=== PATIENT | male | born 1955 | race African-American/Black ===

== ENCOUNTER 2016-03-06 19:34 | Emergency (ER) | payer OTHER ==
[~2016-03-06] VITALS: Ht 172.7 cm; Wt 112.0 kg
[~2016-03-06 19:34] MED LIST: AMITRIPTYLINE H10 M3 PO; AMLODIPINE BESY10 MG PO; AMLODIPINE BESYL5 MG PO; ANALGESIC325 MG PO; ASPIRIN325 PO; BACTRIM DS TAB1 EACH PO; BENTYL 20 MG TA20 M1 PO; CARVEDILOL25 MG PO; CARVEDILOL6.25 MG PO; CHLORTHALIDONE25 MG PO; CIPROFLOXACIN500 M3 PO; FISH OIL 1,0001 EAC5; FISH OIL 1,001000 M1 PO; FLAGYL500 MG PO; FLEXERIL PO; HYDROCHLOROTHIA25 M1 PO; K-DUR10 MEQ; KLOR-CON 10 ER10 MEQ PO; LIPITOR 40 MG T40 M1 PO; MEDROLDOSEPACK PO; MOBIC15 MG PO; NAPROSYN500 MG PO; NEURONTIN 300300 M1 PO; NORCO 5-325 TA1 EACH PO; NORFLEX100 MG PO; PERCOCET 10-651 EACH PO; PERCOCET 5-3251 EACH PO; POTASSIUM20 PO; PRAVACHOL40 MG; PRAVASTATIN SOD10 MG; PRAVASTATIN SOD40 MG PO; PREDNISONE 20 M20 MG PO; PRINIVIL20 MG PO; RANITIDINE 150150 M1 PO; SIMVASTATIN10 MG PO; SORINE 80 MG TA80 M1 PO; STOOL SOFTENER1 EAC2; VALIUM5 MG PO; VICODIN ES TAB1 EACH PO; ZESTRIL20 MG PO; ZETIA10 MG PO
[2016-03-06] MEDS ORDERED: LISINOPRIL20 MG PO (19:45)
[2016-03-06] MEDS ORDERED: HYDROCHLOROTHIA25 M2 PO (19:45)
[2016-03-06] MEDS ORDERED: HYDROCODONE-AP1 EAC6 PO (20:59)
[2016-03-06] MEDS ORDERED: TIZANIDINE HCL4 MG PO (20:59)
== END 2016-03-06 21:29 | disposition home or self-care (01) ==
LOC: ER 19:34
DX: M43.6 Torticollis (principal); I25.2 Old myocardial infarction; I10 Essential (primary) hypertension; E78.00 Pure hypercholesterolemia, unspecified; I48.91 Unspecified atrial fibrillation; G47.39 Other sleep apnea; I71.4 Abdominal aortic aneurysm, without rupture; I25.10 Atherosclerotic heart disease of native coronary artery without angina pectoris; Z88.0 Allergy status to penicillin; Z87.891 Personal history of nicotine dependence

== ENCOUNTER 2016-03-18 12:04 | Emergency (ER) | payer OTHER ==
[~2016-03-18] VITALS: Ht 172.7 cm; Wt 112.0 kg
[~2016-03-18 12:04] MED LIST changes: +HYDROCHLOROTHIA25 M2 PO; +HYDROCODONE-AP1 EAC6 PO; +LISINOPRIL20 MG PO; +TIZANIDINE HCL4 MG PO
[2016-03-18] MEDS ORDERED: MOBIC15 MG PO (15:24)
[2016-03-18] MEDS ORDERED: FLEXERIL PO (15:24)
[2016-03-18] MEDS ORDERED: NORCO 5-325 TA1 EACH PO (15:35)
== END 2016-03-18 16:02 | disposition home or self-care (01) ==
LOC: ER 12:04
DX: S16.1XXA Strain of muscle, fascia and tendon at neck level, initial encounter (principal); I25.2 Old myocardial infarction; I10 Essential (primary) hypertension; E78.5 Hyperlipidemia, unspecified; I48.91 Unspecified atrial fibrillation; I25.10 Atherosclerotic heart disease of native coronary artery without angina pectoris; Z88.0 Allergy status to penicillin; F17.210 Nicotine dependence, cigarettes, uncomplicated; F10.99 Alcohol use, unspecified with unspecified alcohol-induced disorder; V89.2XXA Person injured in unspecified motor-vehicle accident, traffic, initial encounter; Y93.89 Activity, other specified; Y92.89 Other specified places as the place of occurrence of the external cause; Y99.8 Other external cause status

== ENCOUNTER → 2016-08-29 | Outpatient (CLI) | payer OTHER ==
[~2016-08-29] VITALS: Ht 172.7 cm; Wt 112.0 kg
[~2016-08-29] MED LIST changes: +ACETAMINOPHEN-1 EAC2 PO; +AMITRIPTYLINE H25 M2 PO; +IBUPROFEN 800800 M1 PO; +NEURONTIN600 MG PO
[2016-08-29 13:16] VITALS: BP 121/84
== END | disposition home or self-care (01) ==
LOC: PAIN 07:23
DX: M53.3 Sacrococcygeal disorders, not elsewhere classified (principal); G89.29 Other chronic pain; M47.27 Other spondylosis with radiculopathy, lumbosacral region; I11.0 Hypertensive heart disease with heart failure; I50.9 Heart failure, unspecified; M19.90 Unspecified osteoarthritis, unspecified site; Z79.82 Long term (current) use of aspirin; Z79.899 Other long term (current) drug therapy; Z90.49 Acquired absence of other specified parts of digestive tract; Z98.890 Other specified postprocedural states; Z87.891 Personal history of nicotine dependence; Z88.0 Allergy status to penicillin

== ENCOUNTER → 2016-09-06 | Outpatient (CLI) | payer OTHER ==
[~2016-09-06] VITALS: Ht 172.7 cm; Wt 110.0 kg
--- NOTE | ~2016-09-06 | HPC ---
[facility] [place] [address] PAIN MANAGEMENT CONSULTATION Name: NEW WATERMAN Room #: REG CLDedrick De La Fuente#: [id number] Admission: 09/06/16 Attend Phys: Milad Myles DO Discharge: Date of : 55 Report #: [id number] THIS REPORT FOR: //name// CC: Milad Ford DATE OF SERVICE: 09/06/2016 REFERRAL PHYSICIAN: Dr. Kamara. CHIEF COMPLAINT: Left sacroiliac joint pain. HISTORY OF PRESENT ILLNESS: As you know, the patient is a very pleasant 60-year-old male referred to our service for low back pain, left upper buttock, posterolateral thigh pain. The patient states the pain began somewhere in 2016. He was referred to our clinic by his neurosurgery team who has requested diagnostic left SI joint injection under fluoroscopic guidance. The patient was seen in our clinic 08/29/2016 where he was evaluated. He returns today with precertification to undergo the requested left sacroiliac joint injection. Today's pain is rated at 9/10. States pain is constant, burning, aching, sharp and stabbing, exacerbated with sleeping, standing, sitting and walking, improves with nothing today. He returns today per the request of his neurosurgery team to undergo a left sacroiliac diagnostic injection. ALLERGIES: PENICILLIN. CURRENT MEDICATIONS: Aspirin, amlodipine Ranitidine, carvedilol, potassium chloride, lisinopril, hydrochlorothiazide, gabapentin, amitriptyline, cyclobenzaprine, Tylenol No.4 and ibuprofen. SOCIAL HISTORY: The patient denies tobacco, alcohol, IV or illicit drug use. He is unaccompanied at today's visit. IMAGING: No new imaging available. PHYSICAL EXAMINATION: VITAL SIGNS: Blood pressure 141/96, pulse 78, respiratory rate 16, unlabored. The patient is 97% on room air, height 5 feet 8 inches tall, weight 242 pounds, BMI calculated 36.9. GENERAL: Well developed, well nourished, well-hydrated exogenously obese 60-year-old male appearing stated age, placing current pain score at 9/10. HEENT: Normocephalic, atraumatic. Pupils equal, round, reactive to light. Extraocular muscles are intact. EXTREMITIES: Show no clubbing, no cyanosis, no edema. MUSCULOSKELETAL: Seated straight leg raising negative. Supine straight leg raising is positive on the left. Leanne's test is negative. Modified [facility] [address] [place] [address] PAIN MANAGEMENT CONSULTATION Name: NEW WATERMAN Room #: REG [facility]#: [id number] Admission: 09/06/16 Attend Phys: Milad Myles DO Discharge: Date of : 55 Report #: [id number] positive for axial low back pain. Ankle clonus negative. Babinski is negative. There is palpatory tenderness noted over the left sacroiliac joint when compared to the right. Deep palpation of the area causes intensification of pain. ASSESSMENT: 1. Left sacroiliac joint dysfunction. 2. Lumbar radiculopathy. 3. Lumbosacral spondylosis with radicular symptoms. 4. Chronic intractable pain. PLAN: 1. The patient returns today in followup visit having received precertification to undergo the requested left sacroiliac joint injection. The patient and I discussed at length the risks and the benefits of this procedure. These risks include but are not necessarily limited to bleeding, bruising, infection, worsening pain, no relief of pain, also risk of temporary or permanent muscle weakness, temporary or permanent nerve damage, possible paralysis and . The patient states understood and wished to proceed. 2. The patient was provided a diagnostic sacroiliac joint injection form. He is to monitor his pain over the next couple of hours and report to Dr. Kamara the results. The patient indicates he received a significant pain improvement from 9/10-3/10 postprocedurally. He will monitor his pain levels as they return and contact Dr. Kamara with the results so that they can discuss whether or not fusion of the SI joint would be warranted. 3. No medication changes were made at today's visit. The patient to continue current medical therapy as previously prescribed. 4. The patient will return to see his neurosurgeon about treatment options for the response to this left SI joint injection. We wish to thank you for the opportunity to see this patient in consultation. We are returning his care to your capable hands. We will be available if next in the series of injections as requested. DESCRIPTION OF PROCEDURE: Left sacroiliac joint injection under fluoroscopic guidance. After obtaining written consent, the patient was taken back to fluoroscopy suite, placed in a prone position with pillow under the abdomen to decrease the lumbar lordosis. Skin overlying the gluteal sacral area just overlying the left sacroiliac joint was prepped and draped in aseptic fashion. A medial to lateral oblique projection allowed separation of the anterior and posterior branches of the joint space to be visualized. Skin and subcutaneous tissue overlying the target site of injection was anesthetized with 3 mL of 1% lidocaine. A 22-guage 3-1/2 inch spinal needle with bent tip was directed to the inferior aspect of the left sacroiliac joint using a posterior approach. A [address] [address] PAIN MANAGEMENT CONSULTATION Name: NEW WATERMAN Room #: REG [facility]#: [id number] Admission: 09/06/16 Attend Phys: Milad Myles DO Discharge: Date of : 55 Report #: [id number] "giving away" at the needle hub was noted once the dorsal sacroiliac and interosseous ligaments were engaged. After negative aspiration for a heme, a total of 0.4 mL of Isovue was injected. There was classic outlining of the inferior recess of the joint. Provocation responses consisted to have intense buttock pain were negative with this injection. After negative aspiration for heme, 3 mL of bupivacaine 0.5% was injected. Needle was then retracted approximately detention and then flushed with 1 mL of preservative-free normal saline. The needle was then removed. Sterile bandage were then placed over the injection site. No new motor deficits present in lower extremity following the procedure. The patient tolerated procedure well, carefully escorted to the recovery in stable condition. No apparent complications. After meeting discharge criteria, the patient discharged home. cc: Dr. Kamara By: 0717 1152 Milad Myles DO /nt
[2016-09-06 11:00] VITALS: BP 141/96
== END | disposition home or self-care (01) ==
LOC: PAIN 07:20
DX: M53.3 Sacrococcygeal disorders, not elsewhere classified (principal); M47.27 Other spondylosis with radiculopathy, lumbosacral region; G89.29 Other chronic pain; Z88.0 Allergy status to penicillin; Z79.82 Long term (current) use of aspirin; Z79.899 Other long term (current) drug therapy; Z98.890 Other specified postprocedural states; Z87.891 Personal history of nicotine dependence

== ENCOUNTER 2016-10-30 22:59 | Emergency (ER) | payer OTHER ==
[~2016-10-30] VITALS: Ht 172.7 cm; Wt 110.2 kg
[2016-10-31] MEDS ORDERED: NORCO 5-325 TA1 EACH PO (00:03)
== END 2016-10-31 00:30 | disposition home or self-care (01) ==
LOC: ER 22:59
DX: G89.29 Other chronic pain (principal); M54.5 Low back pain; I10 Essential (primary) hypertension; Z95.5 Presence of coronary angioplasty implant and graft; Z87.39 Personal history of other diseases of the musculoskeletal system and connective tissue; Z88.0 Allergy status to penicillin; Z87.891 Personal history of nicotine dependence

== ENCOUNTER 2017-09-16 00:49 | Emergency (ER) | payer OTHER ==
[~2017-09-16] VITALS: Ht 172.7 cm; Wt 112.0 kg
--- NOTE | ~2017-09-16 | EKG ---
[place] [address] [facility] [place] [address] ELECTROCARDIOGRAM REPORT Name: COLUMBANEW GARZA Room #: DEP Leisa#: [id number] Admission: 09/16/17 Attend Phys: Discharge: 09/16/17 Date of : 55 Report #: [id number] THIS REPORT FOR: //name// [facility] ED Test Date: 2017-09-16 Test Time: 02:09:51 Pat Name: NEW WATERMAN Department: Room: Gender: Supervisor Harvesting: maximilian : 1955 Requested By: Kiet Gorman Order Number: [id number] MD: Juvencio Arenas Measurements Intervals [place] Rate: 70 P: 53 DE: 188 QRS: -41 QRSD: 123 T: 54 QT: 413 QTc: 446 Interpretive Statements Sinus rhythm Nonspecific IVCD with LAD Compared to ECG 04/30/2014 22:42:36 Intraventricular conduction delay now present Atrial fibrillation no longer present Electronically Signed On 09-16-2017 13:52:46 CDT by Juvencio Arenas [email or web address] <ELECTRONICALLY SIGNED> By: Juvencio Arenas MD, [facility] 09/16/17 1352 D: 07208 8 Juvencio Arenas MD, FACC /EPI
[2017-09-16] MEDS ORDERED: MORPHINE SULFAT15 M3 PO (02:34)
== END 2017-09-16 02:46 | disposition home or self-care (01) ==
LOC: ER 00:49
DX: R07.89 Other chest pain (principal); I10 Essential (primary) hypertension; Z87.891 Personal history of nicotine dependence; Z88.0 Allergy status to penicillin; Z90.49 Acquired absence of other specified parts of digestive tract

== ENCOUNTER 2017-10-11 21:35 | Inpatient (IN) | payer OTHER ==
[~2017-10-11] VITALS: Ht 172.7 cm; Wt 106.8 kg
--- NOTE | ~2017-10-11 | EKG ---
[address] [place] [address] ELECTROCARDIOGRAM REPORT Name: NEW WATERMAN Room #: 210- DIS IN M.R.#: [id number] Admission: 10/11/17 Attend Phys: Heri Pizano MD Discharge: 10/13/17 Date of : 55 Report #: [id number] THIS REPORT FOR: //name// [facility] Test Date: 2017-10-13 Test Time: 07:30:02 Pat Name: NEW WATERMAN Department: Room: 210 P Gender: M Manager Supply: Noman ONEILL : 1955 Requested By: Sandoval Lynch Order Number: [id number] MD: Juvencio Arenas Measurements Intervals [place] Rate: 57 P: 53 [place]: 170 QRS: -43 QRSD: 130 T: -57 QT: 456 QTc: 444 Interpretive Statements Sinus rhythm Nonspecific IVCD with LAD Compared to ECG 10/11/2017 21:45:03 No significant change was found Electronically Signed On 10-13-2017 13:10:15 CDT by Juvencio Arenas [email or web address] <ELECTRONICALLY SIGNED> By: Juvencio Arenas MD, [facility] 10/13/17 1310 9 Juvencio Arenas MD, [facility] /EPI
--- NOTE | ~2017-10-11 | EKG ---
[address] [address] ELECTROCARDIOGRAM REPORT Name: NEW WATERMAN Room #: 210-P ADM IN M.R.#: [id number] Admission: 10/11/17 Attend Phys: Heri Pizano MD Discharge: Date of : 55 Report #: [id number] THIS REPORT FOR: //name// [facility] ED Test Date: 2017-10-11 Test Time: 21:45:03 Pat Name: NEW WATERMAN Department: Room: 210 Gender: M Medical Transcription: ISAEL : 1955 Requested By: Cindy Jiménez Order Number: [id number] MD: Juvencio Arenas Measurements Intervals [place] Rate: 78 P: 36 SD: 190 QRS: -33 QRSD: 132 T: 92 QT: 380 QTc: 433 Interpretive Statements Sinus rhythm Leftward axis Nonspecific intraventricular conduction delay Compared to ECG 09/16/2017 02:09:51 No significant change was found Electronically Signed On 10-12-2017 8:10:26 CDT by Juvencio Arenas [email or web address] <ELECTRONICALLY SIGNED> By: Juvencio Arenas MD, [facility] 10/12/17 0810 2145 2145 Juvencio Arenas MD, [facility] /EPI
--- NOTE | ~2017-10-11 | CATHLAB ---
[facility] [place] [address] INVASIVE PROCEDURE REPORT Name: NEW WATERMAN Room #: 210-P ADM IN .R.#: [id number] Admission: 10/11/17 Attend Phys: Heri Pizano, Discharge: Date of : 55 Date of Service: 10/13/17 1203 Report #: [id number] THIS REPORT FOR: //name// APPROVED REPORT Study performed: 10/12/2017 13:04:13 Patient Details Patient Status: In-Patient Room #: The patient is a 62 year-old male Event Personnel Sandoval Lynch Environmental Department Manager, Dinesh Edwards RN RN, Vinicius Goldman RN, Shea Wilson Greenwood, Christine RTR Monitor, No Nuñez RTR, BARREL POLISHER Monitor Procedures Performed Art Access - R femoral artery* Art Access - R radial artery Hemostasis with Hemoband Hemostasis w/ Angioseal Left Heart Cath w/or w/o Coronaries [id number] [facility] [address] Initial Mod Sed Same Phys/QHP Gr5y [id number] 88008 Mod Sed Same Phys/QHP Ea [id number] Indication Non-STEMI , Chest pain Risk Factors Arterial Hypertension, Hypercholesterolemia Previous Procedures/Diagnoses Previous PCI, Previous OH Admission/Lab Medications/Medications given during procedure Heparin Low Molecular Weight Procedure Narrative The patient was brought electively to the Cardiac Catheterization Laboratory and was prepped and draped in a sterile manner. The Right Wrist^ was infiltrated with 1% Lidocaine subcutaneous anesthesia. A TRANSRADIAL SLENDER 6F GLIDESHEATH KIT #[id number] sheath was inserted into the RIGHT RADIAL ARTERY^. Coronary angiography was performed using coronary diagnostic catheters. The right coronary system was accessed and visualized with a JR 4 catheter. The left coronary system was accessed and visualized with a JL 4 catheter. The left ventricle was accessed and visualized with a Pigtail catheter. Left [facility] [address] [address] INVASIVE PROCEDURE REPORT Name: NEW WATERMAN Room #: 210-P [facility] IN .R.#: [id number] Admission: 10/11/17 Attend Phys: Heri Pizano, Discharge: Date of : 55 Date of Service: 10/13/17 1203 Report #: [id number] ventricular/Aortic Valve gradient assessed via catheter pullback. Left ventriculogram was performed in ROMERO projection. Closure device was deployed with a 6 Fr vascband. The patient tolerated the procedure well and there were no complications associated with the procedure. There was no hematoma. Intraoperative Conscious Sedation Sedation start time: 15:16 Case end Time: 17:15 Fentanyl 75 mcg Versed 2 mg Fluoro Time: 17.50 minutes Dose: DAP 68377.60 cGycm2 2091 mGy Contrast Type and Amount: Omnipaque 320 ml Coronary Angiography The patient's coronary anatomy is co- dominant. Diagnostic Cath Left Main 0% stenosis LAD 0% stenosis Circumflex Stent in mid circumflex had 50% restenosis OM2 50% proximal stenosis L TANIYA 100% occluded with clot Right Coronary 50% mid stenosis. Stent in mid rca without restenosis RPLV small vessel with proximal 80% stenosis Ramus 60% proximal stenosis Left Ventriculography The left ventricular ejection fraction is estimated to be 30-35%. Left ventricular wall motion abnormalities are present. There is 1+ mitral insufficiency. mild hypokinesis noted of the inferior wall, and severe hypokinesis noted of the distal anterolateral wall Hemodynamics The aortic pressure is 135/101 mmHg with a mean of 118 mmHg. The left ventricular pressure is 127/25 mmHg with a mean of mmHg. The left ventricular end diastolic pressure is 27 mmHg. There was no gradient across the aortic valve upon pullback. Pullback from the left ventricle to the aorta revealed no gradient across the aortic valve. PCI Technique Lesion Anticoagulation was achieved with lovenox. Patient was preloaded with [facility] [address] [address] INVASIVE PROCEDURE REPORT Name: NEW WATERMAN Room #: 210-P [facility] IN M.R.#: [id number] Admission: 10/11/17 Attend Phys: Heri Pizano, Discharge: Date of : 55 Date of Service: 10/13/17 1203 Report #: [id number] Plavix. Percutaneous coronary intervention was performed on the circumflex artery atrioventricular groove continuation segment. The lesion stenosis prior to intervention was 100% with DELVIS 0 flow. A 4.5 xb Guide Catheter was used to engage the lm ostium. A bmw Interventional Guidewire was used to cross the lesion. Final angiography reveals 100 % stenosis with DELVIS 0 flow. COMMENTS Passing wire into distal circumflex difficult secondary to tortuosity of circumflex. Required placement of balloon in the left main artery. Able to pass wire across stenosis into distal circumflex, but unable to pass balloon despite use of guideliner. Concerned that the wire was under a stent strut. Decided to attempt PTCA from femoral approach to provide additional support. Despite efforts, unable to pass balloon into distal circumflex. Patient was pain free. Decided to abandon further attempts because of difficutly, and the vessel was noted to be a distal branch. Angioseal placed in the right femoral artery at end of procedure. Conclusion 1. No significant restenosis of stents noted in mid circumflex and mid rca 2. 80% stenosis noted of a small posterolateral branch of the rca 3. accute occlusion of the distal circumflex 4. unable to advance balloon to the distal circumflex because of distal location and tortuosity 5. moderate LV dysfunction Recommendations Cardiac Rehabilitation Referral Aggressive Medical Therapy Medications Administered Clopidogrel <ELECTRONICALLY SIGNED> By: Sandoval Lynch MD, [facility] 10/13/173 02 02 Sandoval Lynch MD, FAC /INF
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
--- NOTE | ~2017-10-11 | EKG ---
[address] [place] [address] ELECTROCARDIOGRAM REPORT Name: NEW WATERMAN Room #: 210-P DIS IN M.R.#: [id number] Admission: 10/11/17 Attend Phys: Heri Pizano MD Discharge: 10/13/17 Date of : 55 Report #: [id number] THIS REPORT FOR: //name// [facility] Test Date: 2017-10-12 Test Time: 17:47:50 Pat Name: NEW WATERMAN Department: Room: 210 P Gender: M Eeo Officer: Noman ONEILL : 1955 Requested By: Sandoval Lynch Order Number: [id number] MD: Juvencio Arenas Measurements Intervals [place] Rate: 69 P: 48 MD: 187 QRS: -47 QRSD: 128 T: -60 QT: 414 QTc: 444 Interpretive Statements Sinus rhythm Nonspecific IVCD with LAD Compared to ECG 10/11/2017 21:45:03 Nonspecific change in the T wave abnormality Electronically Signed On 10-13-2017 13:01:29 CDT by Juvencio Arenas [email or web address] <ELECTRONICALLY SIGNED> By: Juvencio Arenas MD, [facility] 10/13/17 1301 1747 1747 Juvencio Arenas MD, [facility] /EPI
[~2017-10-11 21:35] MED LIST changes: +MORPHINE SULFAT15 M3 PO
[2017-10-11 21:42] VITALS: BP 189/113
[2017-10-11 22:20] LABS: HEMATOCRIT 40.8 % (42.0-52.0); HEMOGLOBIN 13.9 gm/dL (14.0-18.0); MCHC 34.1 g/dL (28.0-37.0); MCV 93.7 fL (80.0-100.0); RBC 4.36 mil/uL (4.50-6.00); RDW 15.5 % (10.5-14.5); WBC 8.3 thou/uL (4.0-11.0)
[2017-10-11 22:25] LABS: ANION GAP 8 mmol/L (7-16); BUN 15 mg/dL (7-18); CALCIUM 10.3 mg/dL (8.5-10.1); CHLORIDE 102 mmol/L (98-107); CO2 31 mmol/L (21-32); CREATININE 1.2 mg/dL (0.7-1.3); GLUCOSE 135 mg/dL (74-106); POTASSIUM 3.1 mmol/L (3.5-5.1); SODIUM 141 mmol/L (136-145)
[2017-10-11 22:34] LABS: ALBUMIN 3.5 g/dL (3.4-5.0); SGOT 17 U/L (15-37); SGPT 27 U/L (30-65); TOTAL BILIRUBIN 0.1 mg/dL (<0.1-1.0); TOTAL PROTEIN 7.9 g/dL (6.4-8.2); TROPONIN-I <0.06 ng/mL (<0.06)
[2017-10-12] VITALS (8 sets, daily range): BP systolic 128–153; BP diastolic 88–103
[2017-10-12 04:29] LABS: ANION GAP 6 mmol/L (7-16); BUN 12 mg/dL (7-18); CALCIUM 10.2 mg/dL (8.5-10.1); CHLORIDE 103 mmol/L (98-107); CHOLESTEROL 199 mg/dL (<200); CO2 34 mmol/L (21-32); CREATININE 1.1 mg/dL (0.7-1.3); GLUCOSE 181 mg/dL (74-106); HDL CHOLESTEROL 39 mg/dL (>40); LDL CHOLESTEROL 130 mg/dL (<100); POTASSIUM 3.7 mmol/L (3.5-5.1); SODIUM 143 mmol/L (136-145); TC:HDL 5.1 Ratio (Not establshd); TRIGLYCERIDE 152 mg/dL (<150); VLDL 30 mg/dL (<40)
[2017-10-12 04:35] LABS: SERUM ASSESSMENT Clear
[2017-10-13 05:06] VITALS: BP 129/86
[2017-10-13 05:32] LABS: HEMATOCRIT 40.7 % (42.0-52.0); HEMOGLOBIN 14.1 gm/dL (14.0-18.0); MCHC 34.5 g/dL (28.0-37.0); MCV 92.7 fL (80.0-100.0); RBC 4.4 mil/uL (4.50-6.00); RDW 15.7 % (10.5-14.5); WBC 7.8 thou/uL (4.0-11.0)
[2017-10-13 07:33] VITALS: BP 119/84
[2017-10-13] MEDS ORDERED: CLOPIDOGREL75 MG PO (11:05)
[2017-10-13] MEDS ORDERED: ATORVASTATIN CA40 MG PO (11:05)
[2017-10-13] MEDS ORDERED: ADULT LOW DOSE81 MG PO (11:06)
[2017-10-13 11:24] VITALS: BP 119/89
== END 2017-10-13 12:03 | disposition home or self-care (01) | DRG 280 ==
LOC: ER 21:35 → EROBS 23:11 → 2N 23:11 → ENTRNSPT 10-13 11:50 → 2N 10-13 12:03
PROVIDERS: Internal Medicine Cardiovascular Disease; Nurse Practitioner Family; Physician Assistant
PROC: 4A023N7 Measurement of Cardiac Sampling and Pressure, Left Heart, Percutaneous Approach (ICD-10-PCS; principal; 2017-10-12)
PROC: B2111ZZ Fluoroscopy of Multiple Coronary Arteries using Low Osmolar Contrast (ICD-10-PCS; principal; 2017-10-12)
PROC: B2151ZZ Fluoroscopy of Left Heart using Low Osmolar Contrast (ICD-10-PCS; principal; 2017-10-12)
DX: I21.4 Non-ST elevation (NSTEMI) myocardial infarction (principal); I50.33 Acute on chronic diastolic (congestive) heart failure; I42.9 Cardiomyopathy, unspecified; I24.9 Acute ischemic heart disease, unspecified; I25.10 Atherosclerotic heart disease of native coronary artery without angina pectoris; E78.5 Hyperlipidemia, unspecified; I48.91 Unspecified atrial fibrillation; E74.39 Other disorders of intestinal carbohydrate absorption; G47.33 Obstructive sleep apnea (adult) (pediatric); Z90.49 Acquired absence of other specified parts of digestive tract; Z95.5 Presence of coronary angioplasty implant and graft; Z88.0 Allergy status to penicillin; Z82.49 Family history of ischemic heart disease and other diseases of the circulatory system; Z87.891 Personal history of nicotine dependence; I25.2 Old myocardial infarction; Z79.82 Long term (current) use of aspirin; Z79.899 Other long term (current) drug therapy; I11.0 Hypertensive heart disease with heart failure
CPT/HCPCS: 10081

== ENCOUNTER 2018-09-27 19:14 | Emergency (ER) | payer OTHER ==
[~2018-09-27] VITALS: Ht 172.7 cm; Wt 111.1 kg
[~2018-09-27 19:14] MED LIST changes: +ADULT LOW DOSE81 MG PO; +ATORVASTATIN CA40 MG PO; +CLOPIDOGREL75 MG PO
[2018-09-27 20:14] LABS: ABSOLUTE NEUTROPHILS 3.1 thou/uL (1.4-8.2); BASOPHILS 1.2 % (0.0-2.0); HEMATOCRIT 41.3 % (42.0-52.0); HEMOGLOBIN 14.2 gm/dL (14.0-18.0); LYMPHOCYTES 41.4 % (24.0-44.0); MCH 31.3 pg (26.0-34.0); MCHC 34.4 g/dL (28.0-37.0); MCV 90.9 fL (80.0-100.0); MONOCYTES 10.6 % (1.0-8.0); PLATELET COUNT 177 thou/uL (150-400); POLYS 43.8 % (36.0-66.0); RBC 4.54 mil/uL (4.50-6.00); RDW 15.5 % (10.5-14.5); WBC 7.1 thou/uL (4.0-11.0)
[2018-09-27 20:23] LABS: ANION GAP 5 mmol/L (7-16); BUN 17 mg/dL (7-18); CHLORIDE 104 mmol/L (98-107); CO2 29 mmol/L (21-32); CREATININE 1.3 mg/dL (0.7-1.3); GLUCOSE 122 mg/dL (74-106); POTASSIUM 3.2 mmol/L (3.5-5.1); SODIUM 138 mmol/L (136-145)
[2018-09-27 20:34] LABS: TROPONIN-I <0.06 ng/mL (<0.06)
[2018-09-27 20:42] LABS: APTT 29.2 Seconds (24.5-32.8); PROTIME 10.9 Seconds (9.3-11.4)
[2018-09-27 22:40] VITALS: BP 141/95
--- NOTE | 2018-09-28 10:56 | EKG ---
[facility] [place] [address] ELECTROCARDIOGRAM REPORT Name: NEW WATERMAN [id number] Admission: 09/27/18 Attend Phys: Discharge: 09/27/18 Date of : 55 Report #: [id number] THIS REPORT FOR: //name// [facility] ED Test Date: 2018-09-27 Test Time: 19:21:51 Pat Name: NEW WATERMAN Department: Room: Gender: M Technical Operations Specialist: : 1955 Requested By: Jeffery Pang Order Number: [id number] MD: Vikas Lim Measurements Intervals [place] Rate: 124 P: [place]: QRS: -49 QRSD: 127 T: 99 QT: 372 QTc: 535 Interpretive Statements Atrial fibrillation Nonspecific IVCD with LAD LVH with secondary repolarization abnormality Compared to ECG 10/13/2017 07:30:02 Left ventricular hypertrophy now present Early repolarization now present Sinus rhythm no longer present Electronically Signed On 09-28-2018 10:56:03 CDT by Vikas Lim [email or web address] <ELECTRONICALLY SIGNED> By: Vikas Lim MD 09/28/18 1056 192 20 Vikas Lim MD /DESIRAE
[2018-09-28] MEDS ORDERED: ASPIRIN325 PO (17:06)
[2018-09-28] MEDS ORDERED: COREG25 MG (17:06)
[2018-09-28] MEDS ORDERED: HYDROCHLOROTHIA25 M2 PO (17:06)
== END 2018-09-27 22:40 | disposition home or self-care (01) ==
LOC: ER 19:14
PROVIDERS: Emergency Medicine
DX: I48.91 Unspecified atrial fibrillation (principal); R06.00 Dyspnea, unspecified; I10 Essential (primary) hypertension; I25.2 Old myocardial infarction; Z95.2 Presence of prosthetic heart valve; Z90.49 Acquired absence of other specified parts of digestive tract; Z88.0 Allergy status to penicillin; Z87.891 Personal history of nicotine dependence

== ENCOUNTER 2018-09-28 07:37 | Inpatient (IN) | payer OTHER ==
[~2018-09-28] VITALS: Ht 170.2 cm; Wt 97.3 kg
[2018-09-28 07:40] VITALS: BP 141/106
[2018-09-28 08:16] LABS: ABSOLUTE NEUTROPHILS 4.9 thou/uL (1.4-8.2); BASOPHILS 1.4 % (0.0-2.0); EOSINOPHILS 1.9 % (0.0-3.0); HEMATOCRIT 42.4 % (42.0-52.0); HEMOGLOBIN 14.6 gm/dL (14.0-18.0); LYMPHOCYTES 32.2 % (24.0-44.0); MCH 31.4 pg (26.0-34.0); MCHC 34.4 g/dL (28.0-37.0); MCV 91.3 fL (80.0-100.0); MONOCYTES 8.4 % (1.0-8.0); POLYS 56.1 % (36.0-66.0); RBC 4.64 mil/uL (4.50-6.00); RDW 15.5 % (10.5-14.5); WBC 8.8 thou/uL (4.0-11.0)
[2018-09-28 08:26] LABS: ANION GAP 8 mmol/L (7-16); BUN 15 mg/dL (7-18); CALCIUM 10.2 mg/dL (8.5-10.1); CHLORIDE 101 mmol/L (98-107); CO2 27 mmol/L (21-32); CREATININE 1.2 mg/dL (0.7-1.3); GLUCOSE 133 mg/dL (74-106); POTASSIUM 3.1 mmol/L (3.5-5.1); SODIUM 136 mmol/L (136-145)
[2018-09-28 08:31] LABS: ALBUMIN 3.7 g/dL (3.4-5.0); DIRECT BILIRUBIN 0.2 mg/dL (<0.1-0.3); TOTAL BILIRUBIN 0.6 mg/dL (<0.1-1.0); TOTAL PROTEIN 6.1 g/dL (6.4-8.2)
[2018-09-28 08:34] LABS: TROPONIN-I <0.06 ng/mL (<0.06)
[2018-09-28 08:48] LABS: PLATELET COUNT 194 thou/uL (150-400)
[2018-09-28 08:54] LABS: URINE BILIRUBIN NEGATIVE (Negative); URINE BLOOD 1+ (Negative); URINE CLARITY CLEAR; URINE COLOR YELLOW; URINE GLUCOSE-RANDOM* NEGATIVE (Negative); URINE KETONES NEGATIVE (Negative); URINE LEUKOCYTES-REFLEX NEGATIVE (Negative); URINE NITRITE-REFLEX NEGATIVE (Negative); URINE PROTEIN (DIPSTICK) 2+ (Negative); URINE SPECIFIC GRAVITY 1.015 (1.005-1.035)
[2018-09-28 09:29] LABS: CASTS None Seen /LPF (None Seen); CRYSTALS None Seen /LPF (None Seen); SQUAMOUS None Seen /LPF (0-3); URINE RBC 0-2 Rare /HPF (0-2); URINE WBC-REFLEX 0-5 Rare /HPF (0-5)
[2018-09-28 10:19] VITALS: BP 146/109
--- NOTE | 2018-09-28 10:59 | EKG ---
[address] [place] [address] ELECTROCARDIOGRAM REPORT Name: NEW WATERMAN Room #: 170-7 ADM IN M.R.#: [id number] Admission: 09/28/18 Attend Phys: Mathew Chu MD Discharge: Date of : 55 Report #: [id number] THIS REPORT FOR: //name// [facility] ED Test Date: 2018-09-28 Test Time: 07:50:53 Pat Name: NEW WATERMAN Department: Room: 170 Gender: M Chute Operator: REJI : 1955 Requested By: Darell Crockett Order Number: [id number] MD: Vikas Lim Measurements Intervals [place] Rate: 138 P: SD: QRS: -39 QRSD: 127 T: 131 QT: 315 QTc: 478 Interpretive Statements Atrial fibrillation Nonspecific IVCD with LAD LVH with secondary repolarization abnormality Compared to ECG 10/13/2017 07:30:02 Left ventricular hypertrophy now present Electronically Signed On 09-28-2018 10:59:19 CDT by Vikas Lim [email or web address] <ELECTRONICALLY SIGNED> By: Vikas Lim MD 09/28/18 1059 749 9 Vikas Lim MD /DESIRAE
[2018-09-28 12:30] VITALS: BP 160/100
[2018-09-28 13:35] VITALS: BP 147/108
[2018-09-28 16:34] VITALS: BP 163/121
[2018-09-28] MEDS ORDERED: ASPIRIN325 PO (17:06)
[2018-09-28] MEDS ORDERED: COREG25 MG (17:06)
[2018-09-28] MEDS ORDERED: HYDROCHLOROTHIA25 M2 PO (17:06)
[2018-09-28 19:50] VITALS: BP 135/99
[2018-09-29] VITALS (7 sets, daily range): BP systolic 126–170; BP diastolic 81–120
[2018-09-29 06:24] LABS: HEMATOCRIT 43.1 % (42.0-52.0); HEMOGLOBIN 14.6 gm/dL (14.0-18.0); MCH 31.4 pg (26.0-34.0); MCHC 33.9 g/dL (28.0-37.0); MCV 92.7 fL (80.0-100.0); RBC 4.65 mil/uL (4.50-6.00); RDW 15.5 % (10.5-14.5); WBC 9.4 thou/uL (4.0-11.0)
[2018-09-29 06:32] LABS: CALCIUM 9.7 mg/dL (8.5-10.1)
[2018-09-29 06:33] LABS: POTASSIUM 3.8 mmol/L (3.5-5.1)
--- NOTE | 2018-09-29 08:09 | HC ---
[facility] [place] [address] CONSULTATION Name: NEW WATERMAN Room #: 206-P [facility] IN M.R.#: [id number] Admission: 09/28/18 Attend Phys: Mathew Chu MD Discharge: Date of : 55 Report #: [id number] THIS REPORT FOR: //name// CC: Mathew Lynch DATE OF SERVICE: 09/28/2018 CARDIOLOGY CONSULTATION INDICATION: Atrial fibrillation. HISTORY OF PRESENT ILLNESS: This is a 62-year-old gentleman with a history of CAD, NM, PCI, paroxysmal atrial fibrillation, syncope, hypertension and hypercholesterolemia, presenting with palpitations. He presented with palpitations and dyspnea. He denies any chest pains, fever, lightheadedness, vomiting or diarrhea. There is no history of PND or orthopnea. PAST MEDICAL HISTORY: Remote history of stenting, presented with a non-STEMI in 09/2017, was found to have patent stents in the circumflex and right coronary artery. There was a total occlusion of the distal circumflex and angioplasty was unable to be performed as per Dr. Lynch. History of PAF, hypertension, hypercholesterolemia and syncope. ALLERGIES: PENICILLIN. MEDICATIONS: Include Coreg 25 b.i.d., lisinopril, amitriptyline, hydrochlorothiazide, potassium, amlodipine, ranitidine, Lipitor, and aspirin. SOCIAL HISTORY: Negative for tobacco use. FAMILY HISTORY: Negative for premature CAD. REVIEW OF SYSTEMS: A full 10-point review of systems performed. Only the pertinent positives and negatives are as described in the HPI. PHYSICAL EXAMINATION: VITAL SIGNS: Blood pressure is 160/100 and heart rate is 124-130 beats per minute. GENERAL APPEARANCE: An overweight male in no acute distress. HEENT: Normocephalic, atraumatic. Oral mucosa is moist. NECK: Supple. LUNGS: Diminished breath sounds at the bases. CARDIAC: Tachycardic. S1, S2 positive. ABDOMEN: Soft, protuberant. EXTREMITIES: No cyanosis, positive edema. [facility] [address] [place] [address] CONSULTATION Name: NEW WATERMAN Room #: [address] [place] [address] [place] .R.#: [id number] Admission: 09/28/18 Attend Phys: Mathew Chu MD Discharge: Date of : 55 Report #: [id number] DIAGNOSTIC STUDIES: ECG reveals atrial fibrillation/flutter with a rapid rate. LABORATORY VALUES: Troponin is negative. White count is 8.8, hemoglobin is 14.6, creatinine is 1.2. ASSESSMENT AND PLAN: 1. Atrial fibrillation/atrial flutter with rapid rate. Started on IV Cardizem and still has elevated heart rates. We will add a beta ryan to his medical regimen. 2. Coronary artery disease/percutaneous coronary intervention, stable with no complaints of angina. The troponin level is negative. Continue with aspirin therapy. 3. Hypertension, continue with medications. 4. Hypercholesterolemia, continue with statin therapy. <ELECTRONICALLY SIGNED> By: Vikas Lim MD 09/29/18 0809 [id number] 2321 Vikas Lim MD /nt
[2018-09-30] VITALS (9 sets, daily range): BP systolic 129–140; BP diastolic 94–106
[2018-09-30 08:43] LABS: CALCIUM 9.3 mg/dL (8.5-10.1); POTASSIUM 3.2 mmol/L (3.5-5.1)
--- NOTE | 2018-09-30 12:45 | 2DMMODE ---
[facility] [address] [place] [address] 2 D/M-MODE ECHOCARDIOGRAM Name: NEW WATERMAN Room #: 206-P ADM IN M.R.#: [id number] Admission: 09/28/18 Attend Phys: Mathew Chu MD Discharge: Date of : 55 Date of Service: 09/30/18 1245 Report #: [id number] THIS REPORT FOR: //name// APPROVED REPORT Study performed: 09/30/2018 10:57:54 EXAM: Comprehensive 2D, Doppler, and color-flow Echocardiogram Patient Location: Bedside Room #: 206 Status: routine BSA: 2.14 BP: 140/105 mmHg Rhythm: Atrial Fibrillation Other Information Study Quality: Adequate Indications Atrial Fibrillation CAD Hypertension/HDD 2D Dimensions RVDd: 32.58 mm IVSd: 14.58 (7-11mm) LVOT Diam: 21.37 (18-24mm) LVDd: 50.61 mm PWd: 14.80 (7-11mm) Ascending Ao: 29.50 (22-36mm) LVDs: 46.03 (25-40mm) Aortic Root: 30.72 mm IVC: 21.00 mm Volumes Left Atrial Volume (Systole) Single Plane 4CH: 95.44 mL Single Plane 2CH: 95.79 mL LA ESV Index: 48.00 mL/m2 Aortic Valve AoV Peak Luke.: 1.19 m/s AO Peak Gr.: 5.70 mmHg LVOT Max P.65 mmHg LVOT Max V: 0.64 m/s WAYNE Vmax: 1.93 cm2 Pulmonary Valve PV Peak Luke.: 1.06 m/s PV Peak Gr.: 4.49 mmHg [facility] [address] [place] [address] 2 D/M-MODE ECHOCARDIOGRAM Name: NEW WATERMAN Room #: [address] [place] [address] IN ..#: [id number] Admission: 09/28/18 Attend Phys: Mathew Chu MD Discharge: Date of : 55 Date of Service: 09/30/18 1245 Report #: [id number] Tricuspid Valve TR Peak Luke.: 2.66 m/s TR Peak Gr.: 28.54 mmHg PA Pressure: 38.00 mmHg Left Ventricle The left ventricle is normal size. There is hypokinesis of the inferolateral segment. Moderate concentric left ventricular hypertrophy. Left ventricular ejection fraction is moderately decreased. LVEF is 35-40%. This study is not technically sufficient to allow evaluation of the LV diastolic function due to atrial fibrillation. Right Ventricle The right ventricle is normal size. The right ventricular systolic function is normal. Atria Left atrium is dilated. Right atrium is dilated. Aortic Valve The aortic valve is normal in structure. Trace aortic regurgitation. There is no aortic valvular stenosis. Mitral Valve The mitral valve is normal in structure. Mild to moderate mitral regurgitation. No evidence of mitral valve stenosis. Tricuspid Valve The tricuspid valve is normal in structure. There is mild tricuspid regurgitation. Estimated PAP 38 mmHg. There is mild pulmonary hypertension. Pulmonic Valve The pulmonary valve is normal in structure. Trace pulmonic regurgitation. Great Vessels The aortic root is normal in size. IVC is dilated and collapses <50% with inspiration. Pericardium There is no pericardial effusion. <Conclusion> [facility] [address] [place] [address] 2 D/M-MODE ECHOCARDIOGRAM Name: NEW WATERMAN KAYLA Room #: 206- ADM IN M.R.#: [id number] Admission: 09/28/18 Attend Phys: Mathew Chu MD Discharge: Date of : 55 Date of Service: 09/30/18 1245 Report #: [id number] The left ventricle is normal size. Moderate concentric left ventricular hypertrophy. Left ventricular ejection fraction is moderately decreased. LVEF is 35-40%. There is hypokinesis of the inferolateral segment. The right ventricle is normal size. Left atrium is dilated. Right atrium is dilated. Trace aortic regurgitation. Mild to moderate mitral regurgitation. There is mild tricuspid regurgitation. Estimated PAP 38 mmHg. <ELECTRONICALLY SIGNED> By: Vikas Lim MD 09/30/18 1245 1245 1245 Vikas Lim MD /INF
[2018-10-01 04:00] VITALS: BP 146/96
[2018-10-01 05:09] LABS: CALCIUM 9.4 mg/dL (8.5-10.1); POTASSIUM 3.4 mmol/L (3.5-5.1)
[2018-10-01 05:11] LABS: HEMATOCRIT 42.7 % (42.0-52.0); HEMOGLOBIN 14.6 gm/dL (14.0-18.0); MCH 31.7 pg (26.0-34.0); MCHC 34.3 g/dL (28.0-37.0); MCV 92.5 fL (80.0-100.0); RBC 4.61 mil/uL (4.50-6.00); RDW 15.4 % (10.5-14.5); WBC 11.2 thou/uL (4.0-11.0)
[2018-10-01 08:00] VITALS: BP 123/95
--- NOTE | 2018-10-01 08:46 | HC ---
[facility] [address] CONSULTATION Name: NEW WATERMAN Room #: 206-P [facility] IN M.R.#: [id number] Admission: 09/28/18 Attend Phys: Mathew Chu MD Discharge: Date of : 55 Report #: [id number] THIS REPORT FOR: //name// CC: Mathew Lynch DATE OF SERVICE: 09/30/2018 PULMONARY CONSULTATION REFERRING PHYSICIAN: Dr. Jiménez. REASON FOR REFERRAL: Dyspnea and hypoxia. HISTORY OF PRESENT ILLNESS: The patient is a 62-year-old -[place] male who presents to the ED with palpitations and dyspnea. Since admission, he was found to be more hypoxic, dyspneic and Pulmonary consultation was requested. The patient states that he was diagnosed with sleep apnea about 13 years ago. Since then, he has gained weight. He is on CPAP. He has not had a followup regarding his sleep apnea for the past several years. He was in his usual state of health until the morning of admission; he started to develop nausea, vomiting, abdominal pain, back pain along with dyspnea. In the ER was found to be in atrial fibrillation with rapid ventricular response. Chest x-ray on admission was relatively clear. Chest x-ray performed earlier today shows right-sided hazy infiltrates. Left lung field appears to be relatively clear with increased pulmonary markings. The patient denies any recent febrile illness, productive cough, night sweats or chills. He has smoked for a few years, but quit many years ago. He has never been diagnosed with chronic lung disease. PAST MEDICAL HISTORY: Notable for coronary artery disease with prior stent placement, hypertension, paroxysmal atrial fibrillation, history of syncope, hypercholesterolemia. PAST SURGICAL HISTORY: Unremarkable. ALLERGIES: PENICILLIN, REACTIONS UNSPECIFIED. HOME MEDICATIONS: Include Zestril 40 mg once a day, Coreg 25 mg once a day, hydrochlorothiazide 25 mg once a day, Zantac 1 tablet once a day, amlodipine 10 [facility] [address] [place] [address] CONSULTATION Name: NEW WATERMAN Room #: [address] [place] [address] [place] [facility]#: [id number] Admission: 09/28/18 Attend Phys: Mathew Chu MD Discharge: Date of : 55 Report #: [id number] mg once a day, potassium chloride 10 mEq once a day, Elavil 75 mg p.o. at bedtime. FAMILY HISTORY: Noncontributory. SOCIAL HISTORY: Tobacco history: As mentioned above. Otherwise, denies any alcohol use. REVIEW OF SYSTEMS: As mentioned above, otherwise 10-point system review negative. PHYSICAL EXAMINATION: GENERAL: He is awake, alert, in no distress. VITAL SIGNS: Temperature is 98 degrees Fahrenheit, pulse is 66, respiratory rate is 18, blood pressure 136/94 mmHg, saturation 96%. HEENT: Normocephalic, atraumatic. NECK: Supple, without any lymphadenopathy or thyromegaly. CHEST: Breath sounds are good with few scattered crackles in the right lung field. No wheezes. CARDIOVASCULAR: Normal S1, S2. No murmurs or gallop. There is no JVD, no carotid bruit. Pulses are 2+/4+ bilaterally. ABDOMEN: Soft, nontender, no organomegaly or masses felt. GENITOURINARY: Deferred. RECTAL: Deferred. EXTREMITIES: There is no edema, cyanosis or clubbing. LABORATORY DATA: Chest x-ray as mentioned above showing right-sided hazy infiltrates. Echocardiogram showed ejection fraction 35%, hypokinesis involving the inferolateral segment, both atria dilated, moderate mitral regurgitation, pulmonary artery pressure measuring 38. Electrolytes normal and creatinine is normal. WBC 9400, hemoglobin is 14.6. IMPRESSION: 1. Dyspnea, hypoxia in this 62-year-old -[place] male. Chest x-ray shows right-sided hazy ground glass infiltrates. Echo shows LV dysfunction, ejection fraction 35%. No recent febrile illness or productive cough. Right-sided infiltrate might represent atypical pulmonary edema related to heart failure. Pneumonia is felt to be less likely though cannot be ruled out. 2. Obstructive sleep apnea, on CPAP for the last 13 years. He is also gaining weight. The current BMI is about 36. The patient will benefit from repeat sleep study given his history of atrial fibrillation. 3. Atrial fibrillation with rapid ventricular response. 4. Acute on chronic heart failure. 5. History of coronary artery disease. [address] [address] CONSULTATION Name: NEW WATERMAN Room #: 206-P ADM IN M.R.#: [id number] Admission: 09/28/18 Attend Phys: Mathew Chu MD Discharge: Date of : 55 Report #: [id number] 6. Hypertension. RECOMMENDATION: We will follow up chest x-ray in a.m. We will continue diuresis as you are. Would defer any antibiotics for now unless the patient developed febrile illness or productive cough or purulent sputum. DVT and GI prophylaxis is recommended. Thank you for this consultation. <ELECTRONICALLY SIGNED> By: Stiven Chin MD 10/01/18 0846 1818 0050 Stiven Chin MD /nt
[2018-10-01 16:00] VITALS: BP 129/83
[2018-10-01 20:00] VITALS: BP 147/101
[2018-10-02 03:55] VITALS: BP 154/87
[2018-10-02 05:54] LABS: CALCIUM 9.8 mg/dL (8.5-10.1); CREATININE 1.1 mg/dL (0.7-1.3); HEMATOCRIT 44.1 % (42.0-52.0); MCH 31.3 pg (26.0-34.0); MCV 92.1 fL (80.0-100.0); POTASSIUM 3.3 mmol/L (3.5-5.1); RBC 4.79 mil/uL (4.50-6.00); RDW 15.1 % (10.5-14.5); WBC 9.9 thou/uL (4.0-11.0)
[2018-10-02 07:25] VITALS: BP 106/71
[2018-10-02 11:12] VITALS: BP 134/113
[2018-10-02 14:59] VITALS: BP 153/100
[2018-10-02 20:35] VITALS: BP 126/105
[2018-10-03 04:45] VITALS: BP 135/102
[2018-10-03 05:34] LABS: HEMATOCRIT 44.2 % (42.0-52.0); HEMOGLOBIN 15.1 gm/dL (14.0-18.0); MCH 31.4 pg (26.0-34.0); MCHC 34.1 g/dL (28.0-37.0); MCV 92.2 fL (80.0-100.0); RBC 4.8 mil/uL (4.50-6.00); RDW 15.2 % (10.5-14.5); WBC 11.3 thou/uL (4.0-11.0)
[2018-10-03 05:47] LABS: CALCIUM 10.1 mg/dL (8.5-10.1); CREATININE 1.2 mg/dL (0.7-1.3); POTASSIUM 3.3 mmol/L (3.5-5.1)
--- NOTE | 2018-10-03 09:25 | TEE ---
[facility] [place] [place] [address] TRANSESOPHAGEAL ECHOCARDIOGRAM Name: NEW WATERMAN Room #: 204-P [facility] IN .R.#: [id number] Admission: 09/28/18 Attend Phys: Mathew Chu MD Discharge: Date of : 55 Date of Service: 10/03/18 0925 Report #: [id number] THIS REPORT FOR: //name// APPROVED REPORT Study performed: 10/03/2018 07:39:49 EXAM: Comprehensive 2D, Doppler, and color-flow Echocardiogram Patient Location: [facility] Room #: 9 Status: routine BSA: 0.42 HR: 80 bpm BP: 129/90 mmHg Rhythm: Atrial Fibrillation Other Information Study Quality: Excellent Indications Atrial Fibrillation Echo Enhancing Agent Indication: Rule out Shunt Agent(s) / Amount(s) Used: Agitated Saline 7 cc Procedure After obtaining informed consent, patient underwent transesophageal echo in the [facility]. Type of Sedation : Conscious Sedation Sedation was administered by Patsy Asher RN. Sedation was achieved intravenously with: Versed (3 mg) Fentanyl (75 mcg) Transesophageal probe was inserted and advanced into esophagus without difficulty by Juvencio Arenas MD. Echo enhancement indication: R/O Septal defect. Echo enhancement agent administered: Agitated Saline The MARLO was performed without complications. Throughout the procedure, the blood pressure, pulse oximetry, cardiac rhythm, and rate were monitored. The patient tolerated the procedure without adverse effects. Recovery from conscious sedation was uneventful and vital signs were stable. [facility] [address] [place] [address] TRANSESOPHAGEAL ECHOCARDIOGRAM Name: NEW WATERMAN Room #: 204-P [facility] IN ..#: [id number] Admission: 09/28/18 Attend Phys: Mathew Chu MD Discharge: Date of : 55 Date of Service: 10/03/18 0925 Report #: [id number] Left Ventricle The left ventricle is normal size. There is global hypokinesis of the left ventricle. Mild concentric left ventricular hypertrophy. Left ventricular ejection fraction is moderately decreased. LVEF is 40-45%. Right Ventricle The right ventricle is normal size. The right ventricular systolic function is normal. Atria Left atrium is dilated. Thrombus is present in the left atrial appendage. No shunting by contrast bubble injection Right atrium is dilated. Aortic Valve The aortic valve is normal in structure. Trace aortic regurgitation. There is no aortic valvular stenosis. Mitral Valve The mitral valve is normal in structure. Moderate mitral regurgitation. No evidence of mitral valve stenosis. Tricuspid Valve The tricuspid valve is normal in structure. Mild tricuspid regurgitation. Pulmonic Valve The pulmonary valve is normal in structure. There is no pulmonic valvular regurgitation. Great Vessels The aortic root is normal in size. IVC is normal in size and collapses >50% with inspiration. Pericardium There is no pericardial effusion. <Conclusion> Left ventricular ejection fraction is moderately decreased. LVEF is 40%. Both atria are dilated. Thrombus is present in the left atrial appendage. No shunting by contrast bubble injection The aortic valve is normal in structure. Trace aortic regurgitation, no stenosis. [facility] [place] [address] [place] [address] TRANSESOPHAGEAL ECHOCARDIOGRAM Name: NEW WATERMAN Room #: 204-P [facility] IN ..#: [id number] Admission: 09/28/18 Attend Phys: Mathew Chu MD Discharge: Date of : 55 Date of Service: 10/03/18924 Report #: [id number] The mitral valve is normal in structure. Moderate mitral regurgitation. Mild aortic atherosclerosis, no aneurysm There is no pericardial effusion. <ELECTRONICALLY SIGNED> By: Juvencio Arenas MD, FACC 10/03/18924 4 4 Juvencio Arenas MD, FACC /INF
[2018-10-03 11:30] VITALS: BP 129/89
[2018-10-03 15:00] VITALS: BP 113/87
[2018-10-03 20:16] VITALS: BP 142/92
[2018-10-04] VITALS (9 sets, daily range): BP systolic 116–135; BP diastolic 87–103
[2018-10-04 05:18] LABS: HEMATOCRIT 44.5 % (42.0-52.0); HEMOGLOBIN 15.2 gm/dL (14.0-18.0); MCH 31.5 pg (26.0-34.0); MCHC 34.2 g/dL (28.0-37.0); RBC 4.84 mil/uL (4.50-6.00); RDW 15.1 % (10.5-14.5); WBC 9.7 thou/uL (4.0-11.0)
[2018-10-04 05:35] LABS: CALCIUM 10.4 mg/dL (8.5-10.1); CREATININE 1.4 mg/dL (0.7-1.3); POTASSIUM 3.3 mmol/L (3.5-5.1)
[2018-10-04] MEDS ORDERED: ALDACTONE50 MG PO (08:51)
[2018-10-04] MEDS ORDERED: TORSEMIDE20 MG PO (08:51)
[2018-10-04] MEDS ORDERED: ELIQUIS5 MG PO (08:51)
[2018-10-04] MEDS ORDERED: PACERONE 200 M200 M1 PO (08:51)
[2018-10-04] MEDS ORDERED: ATENOLOL 25MG T25 M1 PO (08:51)
== END 2018-10-04 17:55 | disposition home health service (06) | DRG 291 ==
LOC: ER 07:37 → 2N 10:22 → EROBS 10:22 → 2N 12:37 → ENTRNSPT 10-04 17:48 → 2N 10-04 17:55
PROVIDERS: Emergency Medicine; Hospitalist; Internal Medicine Cardiovascular Disease; Internal Medicine Pulmonary Disease; ADMIT Hospitalist
PROC: 5A09357 Assistance with Respiratory Ventilation, Less than 24 Consecutive Hours, Continuous Positive Airway Pressure (ICD-10-PCS; principal; 2018-10-01)
PROC: 5A09357 Assistance with Respiratory Ventilation, Less than 24 Consecutive Hours, Continuous Positive Airway Pressure (ICD-10-PCS; 2018-10-02)
DX: I11.0 Hypertensive heart disease with heart failure (principal); J96.01 Acute respiratory failure with hypoxia; I48.92 Unspecified atrial flutter; I50.43 Acute on chronic combined systolic (congestive) and diastolic (congestive) heart failure; I48.0 Paroxysmal atrial fibrillation; E78.00 Pure hypercholesterolemia, unspecified; I25.10 Atherosclerotic heart disease of native coronary artery without angina pectoris; G47.33 Obstructive sleep apnea (adult) (pediatric); I71.4 Abdominal aortic aneurysm, without rupture; E78.5 Hyperlipidemia, unspecified; Z79.82 Long term (current) use of aspirin; Z79.899 Other long term (current) drug therapy; Z95.5 Presence of coronary angioplasty implant and graft; Z87.891 Personal history of nicotine dependence; Z90.49 Acquired absence of other specified parts of digestive tract; I25.2 Old myocardial infarction; Z88.0 Allergy status to penicillin
CPT/HCPCS: 10081

== ENCOUNTER 2018-10-21 11:47 | Inpatient (IN) | payer OTHER ==
[~2018-10-21] VITALS: Ht 172.7 cm; Wt 111.0 kg
--- NOTE | ~2018-10-21 | EEG ---
[facility] [place] [address] ELECTROENCEPHALOGRAM Name: NEW WATERMAN Room #: 207-P ADM IN M.R.#: [id number] Admission: 10/21/18 Attend Phys: Rafal Tripathi Discharge: Date of : 55 Report #: [id number] THIS REPORT FOR: //name// CC: Sandoval Lynch [facility] physician/PCP Rafal Nguyễn DATE OF SERVICE: 10/24/2018 The patient is being evaluated for altered mental status. The EEG was done by placing the electrode by standard 10-20 system of electrode placement. Both referential and sequential montages were used for recording. Background activity in this patient's EEG is about 8-9 Hz and 30 microvolts. The patient goes to sleep and that is associated with bilateral slowing and vertex sharp waves. Photic stimulation was unremarkable. IMPRESSION: This patient's EEG is somewhat intermixed with slight theta range slowing. That is a nonspecific finding, which can occur with drowsiness, effect of psychotropic medication, dementia, etc. No active epileptiform activity was noticed during this record. EKG channel appeared to be showing rhythm abnormality of the heart that can be further worked up as clinically indicated. By: 1157 1205 Chris Maravilla MD /nt
[~2018-10-21 11:47] MED LIST changes: +ALDACTONE50 MG PO; +ATENOLOL 25MG T25 M1 PO; +COREG25 MG; +ELIQUIS5 MG PO; +PACERONE 200 M200 M1 PO; +TORSEMIDE20 MG PO
[2018-10-21 11:48] VITALS: BP 130/97
[2018-10-21] MEDS ORDERED: NITROGLYCERIN0.4 MG SUBLING (12:18)
[2018-10-21] MEDS ORDERED: MOBIC15 MG PO (12:19)
[2018-10-21 13:03] LABS: BASOPHILS 1.3 % (0.0-2.0); EOSINOPHILS 1.6 % (0.0-3.0); HEMATOCRIT 41.8 % (42.0-52.0); HEMOGLOBIN 14.3 gm/dL (14.0-18.0); LYMPHOCYTES 33.5 % (24.0-44.0); MCH 31.7 pg (26.0-34.0); MCHC 34.2 g/dL (28.0-37.0); MCV 92.7 fL (80.0-100.0); MONOCYTES 8.6 % (1.0-8.0); PLATELET COUNT 249 thou/uL (150-400); RBC 4.51 mil/uL (4.50-6.00); RDW 15.6 % (10.5-14.5); WBC 7.2 thou/uL (4.0-11.0)
[2018-10-21 13:16] LABS: APTT 23.6 Seconds (24.5-32.8); INR 1.5
[2018-10-21 14:03] LABS: ALBUMIN 3.4 g/dL (3.4-5.0); CALCIUM 10.2 mg/dL (8.5-10.1); CREATININE 1.6 mg/dL (0.7-1.3); POTASSIUM 4.1 mmol/L (3.5-5.1); TOTAL BILIRUBIN 0.5 mg/dL (<0.1-1.0); TOTAL PROTEIN 8.8 g/dL (6.4-8.2)
[2018-10-21 14:34] VITALS: BP 119/93
--- NOTE | 2018-10-21 15:13 | NUR ---
TO UNIT FROM E.D. BY CART, ACCOMPANIED BY RN, HEALTH CARE COORDINATOR, AND PATIENT'S . REPORT FROM MYKEL WILLS. ORIENTED TO UNIT. AFIB PER TELE, CARDIZEM DRIP AT 10ML. WILL CONTINUE TO MONITOR.
[2018-10-21 16:50] VITALS: BP 131/112
[2018-10-21 20:05] VITALS: BP 129/98
[2018-10-22 00:59] VITALS: BP 139/117
[2018-10-22 04:38] VITALS: BP 136/97
--- NOTE | 2018-10-22 04:39 | NUR ---
ASSESSMENTS CHARTED. PT ON CARDIZEM GGT FOR AFIB. PATIENT PULLED TWO IV'S OUT, CURRENTLY WAITING FOR VASCULAR ACCESS TO RE-ESTABLISH ACCESS. PATIENT GETTING INCREASINGLY MORE CONFUSSED THE NIGHT PROGRESSESS. CONTINUES TO TAKE NASAL CANULA OFF. FALL PRECAUTIONS IN PLACE. C/O FLANK PAIN. RECEIVED ORDER FOR ULTRAM.
[2018-10-22 07:17] VITALS: BP 126/82
--- NOTE | 2018-10-22 09:12 | EKG ---
[address] [address] ELECTROCARDIOGRAM REPORT Name: NEW WATERMAN Room #: 207-P ADM IN M.R.#: [id number] Admission: 10/21/18 Attend Phys: Rafal Nguyễn Discharge: Date of : 55 Report #: [id number] THIS REPORT FOR: //name// [facility] ED Test Date: 2018-10-21 Test Time: 12:19:41 Pat Name: NEW WATERMAN Department: Room: 207 Gender: M Cold Working Inspector: Stephanie FRANCIS RN : 1955 Requested By: Travis Barlow Order Number: [id number] MD: Naun Pires Measurements Intervals [place] Rate: 113 P: FL: QRS: -35 QRSD: 125 T: 195 QT: 331 QTc: 454 Interpretive Statements Atrial fibrillation Nonspecific intraventricular conduction delay Repol abnrm suggests ischemia, anterolateral Compared to ECG 09/28/2018 07:50:53 Electronically Signed On 10-22-2018 9:12:13 CDT by Naun Pires [email or web address] <ELECTRONICALLY SIGNED> By: Naun Pires MD 10/22/18911 18 18 Naun Pires MD /DESIRAE
[2018-10-22 12:10] VITALS: BP 121/90
--- NOTE | 2018-10-22 12:46 | NUR ---
ASSUMED CARE AT SHIFT CHANGE, SLEEPY AND RESTING IN CHAIR THIS AM. HE HAS PERIODS OF CONFUSION, AND FAMILY STATED THAT THIS CONFUSSION IS NEW. NOTIFIED. REMAINS ON CARDIZEM GTT FOR AFIB. FALL RISK PRECAUTIONS IN PLACE AND WILL CONTINUE WITH POC.
[2018-10-22 16:08] VITALS: BP 130/92
[2018-10-22 19:56] VITALS: BP 123/93
[2018-10-23 04:00] VITALS: BP 110/84
--- NOTE | 2018-10-23 04:18 | NUR ---
ASSESSMENTS CHARTED. AFIB DURING SHIFT. ON CARDIZEM DRIPS. CONFUSSED. ALERT AND ORIENTED X 2. SPENT SHIFT IN RECLINER. FALL PRECAUTIONS IN PLACE. ON OXYGEN AT 3 LITERS, TAKES OFF NASAL CANULA IN HIS SLEEP. DENIES PAIN.
[2018-10-23 08:12] VITALS: BP 104/79
[2018-10-23 09:17] LABS: BE(vivo) -0.4 mmol/L (-2 to +3); HCO3 23.8 mmol/L (22.0-26.0); PCO2 37.6 mmHg (35.0-45.0); pH 7.419 (7.360-7.450); sO2 97.1 % (92.0-98.0)
[2018-10-23 11:44] LABS: TSH 7.868 uIU/mL (0.358-3.740)
[2018-10-23 12:35] VITALS: BP 122/96
[2018-10-23 16:49] VITALS: BP 125/87
--- NOTE | 2018-10-23 16:59 | NUR ---
Met with patient he is alert to hospital and situation. patient reports he lives alone. He does not use oxygen. He was recently at hospital and dc home with [facility] care. Patient reports "they told me I have dementia" ondina reports his uncle of dementia. Sp with Kiara xgirlfriend she reports patient still resides with her but she is working to find him an independent apt. "Can he live alone?' Discussed assisted living with Kiara and she reports he likely would not agree. He would agree with independent apt. [place]. plan to make referral for HBCS. [place] Kiara. At this time plan dc home with Kiara with resumption of [facility] care and add community to HH orders.
[2018-10-23 20:35] VITALS: BP 129/93
--- NOTE | 2018-10-23 22:27 | NUR ---
ASSESSMENTS CHARTED. PATIENT IN AFIB DURING SHIFT. ON 3 LITERS OXYGEN. UP X 1 IN ROOM. PLAN OF CARE IS TO CONTINUE LASIX THERAPY. PATIENT CONTINUES TO HAVE NO TIME REFERENCE, BUT ALERT TO SELF AND LOCATION. FALL PRECAUTIONS IN PLACE. DENIES PAIN.
[2018-10-24] VITALS (8 sets, daily range): BP systolic 119–141; BP diastolic 77–104
[2018-10-24 05:17] LABS: CALCIUM 9.4 mg/dL (8.5-10.1); CREATININE 1.3 mg/dL (0.7-1.3); POTASSIUM 3.8 mmol/L (3.5-5.1)
--- NOTE | 2018-10-24 18:17 | NUR ---
ASSUMED CARE OF PATIENT AT 0700. ASSESSMENTS CHARTED. PATIENT SEEN BY CARDIOLOGY AND NEURO. PATIENT CONTINUES TO BE INTERMITTENTLY CONFUSED AT TIMES, HOWEVER MUCH MORE CLEAR THAN THE LAST TIME I ENCOUNTERED THIS PATIENT A MONTH AGO. PATIENT HAS MINIMAL APPETITE. PATIENT DENIES ANY PAIN. PATIENT'S BROTHER WAS AT THE BEDSIDE FOR THE ENTIRETY OF THE MORNING. PATIENT WAS APPROPRIATE WITH FOLLOWING DIRECTIONS. PATIENT TO CONTINUE WITH POC.
[2018-10-25 04:19] VITALS: BP 145/85
--- NOTE | 2018-10-25 05:24 | NUR ---
ASSUMED CARE OF PT WITH STABLE VSS. AFIB AND ASYMPTOMATIC FOR SHIFT. PT SLEPT THRU NIGHT. PLAN IS TO DETERMINE WHETHER PT WILL BE DISCHARGED WITH HH OR WITH FAMILY. WILL CONTINUE TO MONITOR PER PT POC.
[2018-10-25 05:35] LABS: CALCIUM 9.6 mg/dL (8.5-10.1); CREATININE 1.4 mg/dL (0.7-1.3); POTASSIUM 3.5 mmol/L (3.5-5.1)
[2018-10-25 05:43] LABS: HEMATOCRIT 41.6 % (42.0-52.0); HEMOGLOBIN 13.7 gm/dL (14.0-18.0); MCV 94.1 fL (80.0-100.0); RBC 4.42 mil/uL (4.50-6.00); WBC 7.2 thou/uL (4.0-11.0)
[2018-10-25 08:00] VITALS: BP 154/87
[2018-10-25 12:00] VITALS: BP 117/91
[2018-10-25 16:00] VITALS: BP 134/96
--- NOTE | 2018-10-25 16:09 | NUR ---
ASSESSMENT CHARTED - MEDS PER APR - PT STARTED ON POTTASSIUM AND DEMEDEX TODAY AND TOPROL DOSE INCREASE FOR THIS EVENING. OS REMOVED RA SAT 98% - STATES SOB BETTER TODAY. AMBULATED IN THE HALLS WITH PHYS THERAPY - PATIENT USES CANE FOR AMUBLATION WALKS WITH LIMP ON THE LEFT. NO CO'S OF PAIN OR NAUSEA. KRISTYN DIET AND FLIUDS. hAS BEEN UP IN THE CHAIR FOR MOST OF THE DAY. NO CO'S AT THE PRESENT TIME.
--- NOTE | 2018-10-25 17:50 | NUR ---
Possible wkend dc anticipated. Home with Kiara and resumption of hh with Jessica. Will ask for [facility] f/u at home to assist with community resources and possible chcf placement. Weekend staff to fax [facility] at [phone] and call their oncall nurse to verify [phone].
[2018-10-25 20:37] VITALS: BP 126/83
[2018-10-26 05:23] VITALS: BP 122/92
[2018-10-26 05:49] LABS: CALCIUM 9.4 mg/dL (8.5-10.1); CREATININE 1.3 mg/dL (0.7-1.3); POTASSIUM 3.1 mmol/L (3.5-5.1)
--- NOTE | 2018-10-26 07:34 | NUR ---
ASSUMED PT CARE AT 1900 WITH NO SIGN OF DISTRESS NOTED IN PT. PT IS ALERT AND ORIENTED. NO FAMILY AT BEDSIDE. FALL PRECAUTION IN PLACE. ASSESSMENT DOUMENTED AND CHARTED. SCHEDULED MEDS ADMINISTERED TO PT. PT TOLERATED PO INTAKE, DENIES ANY FURTHER NEEDS AT THIS TIME.
[2018-10-26 08:58] VITALS: BP 139/97
[2018-10-26 12:52] VITALS: BP 138/80
[2018-10-26 15:47] LABS: MAGNESIUM 1.8 mg/dL (1.8-2.4); PHOSPHORUS 3.4 mg/dL (2.5-4.9)
[2018-10-26 16:30] VITALS: BP 108/95
--- NOTE | 2018-10-26 17:44 | NUR ---
ASSESSMENT CHARTED - MEDS PER APR - PT WITH LOW K+ THIS AM GIVEN 40MEQ ORDERED - LAB IN THE AM. KRISTYN DIET AND FLUIDS. NO CO'S OF PAIN OR NASUEA. PT UP IN THE CHAIR FOR THE DAY - AMBULATING IN THE ROOM. PT WITH CLOTHES ON FOR THE DAY WA TING TO GO HOME - DOCTOR INTO TO SEE AND PATIENT NOT GOING HOME - HE BECME RATHER UPSET WHEN HE WAS TOLD HE WAS NOT GOING STATING THAT THE DOCTOR AND NURSES SAID HE WAS. ABLE TO CALM PATIENT DOWN. PT UP IN THE CHAIR EATING DINNER WITH NO CO'S AT THE PRESENTTIME.
[2018-10-26 20:00] VITALS: BP 128/95
--- NOTE | 2018-10-27 03:56 | NUR ---
RECEIVED PT'S CARE AT 1900; PT. ON CHAIR; AOX4; DURING ASSESSMENT C/O L. SHOULDER PAIN; PRN PAIN MEDICATION GIVEN; HS MEDICATION GIVEN; EDUCATED ABOUT FALL PREVENTIONS; ST. UNDERSTANDING; ABLE TO REST WITH EYES CLOSED THROUGH THE NIGHT; HR AFIB; MONITORING; ASSESSMENT CHARGED; FOLLOWING POC; WILL PASS ON REPORT.
[2018-10-27 05:00] VITALS: BP 121/61
[2018-10-27 05:28] LABS: ABSOLUTE NEUTROPHILS 2.5 thou/uL (1.4-8.2); ALBUMIN 3.3 g/dL (3.4-5.0); BASOPHILS 1.4 % (0.0-2.0); CALCIUM 9.6 mg/dL (8.5-10.1); CREATININE 1.2 mg/dL (0.7-1.3); EOSINOPHILS 5.2 % (0.0-3.0); HEMATOCRIT 42.7 % (42.0-52.0); HEMOGLOBIN 14.3 gm/dL (14.0-18.0); LYMPHOCYTES 51.4 % (24.0-44.0); MAGNESIUM 1.9 mg/dL (1.8-2.4); MCH 31.2 pg (26.0-34.0); MCHC 33.4 g/dL (28.0-37.0); MCV 93.3 fL (80.0-100.0); MONOCYTES 9.4 % (1.0-8.0); PHOSPHORUS 3.4 mg/dL (2.5-4.9); PLATELET COUNT 210 thou/uL (150-400); POLYS 32.6 % (36.0-66.0); POTASSIUM 3.5 mmol/L (3.5-5.1); RBC 4.57 mil/uL (4.50-6.00); RDW 15.5 % (10.5-14.5); TOTAL BILIRUBIN 0.9 mg/dL (<0.1-1.0); TOTAL PROTEIN 8.7 g/dL (6.4-8.2); WBC 7.7 thou/uL (4.0-11.0)
[2018-10-27 07:29] LABS: ANISOCYTOSIS 2+; LARGE PLATELETS RARE
[2018-10-27 08:05] VITALS: BP 130/94
[2018-10-27] MEDS ORDERED: METOPROLOL SUCC50 MG PO (10:34)
[2018-10-27] MEDS ORDERED: ACETAMINOPHEN325 M1 PO (10:35)
[2018-10-27] MEDS ORDERED: MIRALAX17 GM PO (10:36)
[2018-10-27 11:49] VITALS: BP 126/90
--- NOTE | 2018-10-27 12:14 | NUR ---
PATIENT ALERT AND ORIENTED X4, NO COMPLAINTS OF PAIN. UP WITH A WALKER. DISCHARGE INSTRUCTIONS DISCUSSED, FOLLOW UP VISITS, PRESCRIPTIONS GIVEN. PATIENT VERBALIZED UNDERSTANDING. IV REMOVED, TRANSFERRED BY STAFF TO VEHICLE.
[2018-10-27 12:16] VITALS: BP 126/90
== END 2018-10-27 12:20 | disposition home health service (06) | DRG 291 ==
LOC: ER 11:47 → EROBS 14:13 → 2N 14:13
PROVIDERS: Emergency Medicine; Hospitalist; Internal Medicine; Internal Medicine Cardiovascular Disease; Psychiatry & Neurology Neurology; ADMIT Hospitalist
DX: I11.0 Hypertensive heart disease with heart failure (principal); J96.01 Acute respiratory failure with hypoxia; G93.40 Encephalopathy, unspecified; I50.43 Acute on chronic combined systolic (congestive) and diastolic (congestive) heart failure; I48.91 Unspecified atrial fibrillation; E78.5 Hyperlipidemia, unspecified; I71.4 Abdominal aortic aneurysm, without rupture; I25.10 Atherosclerotic heart disease of native coronary artery without angina pectoris; I48.0 Paroxysmal atrial fibrillation; I25.5 Ischemic cardiomyopathy; Z60.2 Problems related to living alone; E03.9 Hypothyroidism, unspecified; F32.9 Major depressive disorder, single episode, unspecified; G47.00 Insomnia, unspecified; E87.6 Hypokalemia; Z88.0 Allergy status to penicillin; Z95.5 Presence of coronary angioplasty implant and graft; Z79.899 Other long term (current) drug therapy; Z79.82 Long term (current) use of aspirin; Z87.891 Personal history of nicotine dependence; Z79.01 Long term (current) use of anticoagulants; I25.2 Old myocardial infarction; Z99.81 Dependence on supplemental oxygen
CPT/HCPCS: 10081

== ENCOUNTER 2019-02-20 11:57 | Emergency (ER) | payer OTHER ==
[~2019-02-20] VITALS: Ht 172.7 cm; Wt 98.0 kg
[~2019-02-20 11:57] MED LIST changes: +ACETAMINOPHEN325 M1 PO; +METOPROLOL SUCC50 MG PO; +MIRALAX17 GM PO; +NITROGLYCERIN0.4 MG SUBLING
[2019-02-20 12:06] VITALS: BP 120/80
[2019-02-20] MEDS ORDERED: NORFLEX100 MG PO (13:25)
[2019-02-20] MEDS ORDERED: MOBIC7.5 MG PO (13:25)
== END 2019-02-20 13:29 | disposition home or self-care (01) ==
LOC: ER 11:57
DX: S39.012A Strain of muscle, fascia and tendon of lower back, initial encounter (principal); I10 Essential (primary) hypertension; Z95.5 Presence of coronary angioplasty implant and graft; Z87.891 Personal history of nicotine dependence; Z88.0 Allergy status to penicillin; X50.9XXA Other and unspecified overexertion or strenuous movements or postures, initial encounter; Y93.89 Activity, other specified; Y92.89 Other specified places as the place of occurrence of the external cause; Y99.8 Other external cause status

== ENCOUNTER 2019-03-12 15:46 | Inpatient (IN) | payer OTHER ==
[~2019-03-12] VITALS: Ht 172.7 cm; Wt 102.1 kg
--- NOTE | ~2019-03-12 | P ---
[facility] [place] [address] PROCEDURE REPORT Name: NEW WATERMAN Room #: 208-P [facility] IN M.R.#: [id number] Admission: 03/12/19 Attend Phys: Stacie Torres MD Discharge: 03/14/19 Date of : 55 Report #: [id number] THIS REPORT FOR: cc: FRANKI - Family physician unknown FAM - Family physician unknown Naun Pires MD ~ THIS REPORT FOR: //name// CC: Stacie munoz PROCEDURE: Pacemaker implantation. PREOPERATIVE DIAGNOSES: 1. Symptomatic bradycardia. 2. Atrial fibrillation. 3. Tachycardia-bradycardia syndrome. 4. Nonischemic cardiomyopathy. HISTORY OF PRESENT ILLNESS: The patient is a 63-year-old with history of atrial fibrillation as well as a nonischemic cardiomyopathy, who presents with increased fatigue and lightheadedness, found to be in a junctional bradycardia. He is here for dual chamber pacemaker implantation. His echo prior to pacemaker implantation had shown that his ejection fraction has improved to 50%. ANESTHESIA: The patient underwent MAC anesthesia with no anesthesia-related complications. DESCRIPTION OF PROCEDURE: The patient underwent informed consent. We discussed the details of the procedure including the risks, which include but not limited to bleeding, infection, vascular damage, cardiac perforation, pneumothorax. He understood these risks and is willing to proceed. As such, he was brought to the EP laboratory in a fasting and sedated state, prepped and draped in a sterile fashion, underwent venogram showing patency of the left axillary vein and received IV antibiotics. Next, I injected lidocaine at the incision site. Incision was made, and a pocket was created. Access was obtained twice to left axillary vein using the extrathoracic approach with sheaths positioned, using the modified Seldinger technique. Next, leads were positioned in the right ventricle and right atrial appendage, both with adequate pacing and sensing thresholds. Leads were sutured to prepectoral fascia. Pocket was closed in 2 layers and surgical glue was placed under skin layer. There were no complications nor any significant bleeding. Implanted pacemaker, [employer] model #TB1662, serial #[id number]. Atrial lead, [employer] model #2088TC, 52 cm, serial #[id number]. RV lead was a [employer], model #2088TC, 58 cm, serial #[id number]. Atrial lead demonstrated P-wave 3.1 millivolts, pacing impedance 490 ohms, pacing threshold [facility] [address] [place] [address] PROCEDURE REPORT Name: NEW WATERMAN Room #: 208-P [facility] IN [facility].#: [id number] Admission: 03/12/19 Attend Phys: Stacie Torres MD Discharge: 03/14/19 Date of : 55 Report #: [id number] of 1 volt at 0.5 milliseconds. RV lead demonstrated R-wave of 6.3 millivolts, pacing impedance of 850 ohms, pacing threshold 0.75 volts at 0.4 milliseconds. CONCLUSION: Successful dual-chamber pacemaker implantation. By: [id number] [id number] Naun Pires MD /nt
[2019-03-12 15:46] VITALS: BP 134/85
[~2019-03-12 15:46] MED LIST changes: +MOBIC7.5 MG PO
[2019-03-12 16:12] LABS: ABSOLUTE NEUTROPHILS 3.1 thou/uL (1.4-8.2); BASOPHILS 1.3 % (0.0-2.0); EOSINOPHILS 4.2 % (0.0-3.0); HEMATOCRIT 47.9 % (42.0-52.0); HEMOGLOBIN 15.7 gm/dL (14.0-18.0); LYMPHOCYTES 42.4 % (24.0-44.0); MCH 31.9 pg (26.0-34.0); MCHC 32.7 g/dL (28.0-37.0); MCV 97.5 fL (80.0-100.0); MONOCYTES 10.9 % (1.0-8.0); POLYS 41.2 % (36.0-66.0); RBC 4.91 mil/uL (4.50-6.00); RDW 16.1 % (10.5-14.5); WBC 7.5 thou/uL (4.0-11.0)
[2019-03-12 16:44] LABS: PLATELET ESTIMATE NORMAL
[2019-03-12 16:45] LABS: PLATELET COUNT 207 thou/uL (150-400)
[2019-03-12 17:31] LABS: ANION GAP 3 mmol/L (7-16); BUN 19 mg/dL (7-18); CALCIUM 9.7 mg/dL (8.5-10.1); CHLORIDE 101 mmol/L (98-107); CO2 30 mmol/L (21-32); CREATININE 1.6 mg/dL (0.7-1.3); GLUCOSE 89 mg/dL (74-106); POTASSIUM 5.8 mmol/L (3.5-5.1); SODIUM 134 mmol/L (136-145)
[2019-03-12 17:40] LABS: ALBUMIN 3.7 g/dL (3.4-5.0); SGOT 26 U/L (15-37); SGPT 27 U/L (30-65); TOTAL BILIRUBIN 0.6 mg/dL (<0.1-1.0); TOTAL PROTEIN 8.5 g/dL (6.4-8.2); TROPONIN-I <0.06 ng/mL (<0.06)
[2019-03-12 21:49] VITALS: BP 128/80
--- NOTE | 2019-03-12 21:51 | NUR ---
HANDOFF REPORT SENT AT THIS TIME
--- NOTE | 2019-03-12 22:02 | NUR ---
CALLED THE CCU TO GIVE REPORT. WAS TOLD THEY WERE UNABLE TO FIND THE RN. THEY SAID THEY WOULD FIND THE LONG CHAIN QUILLER TENDER AND CALL ME BACK.
[2019-03-12 23:25] VITALS: BP 110/65
[2019-03-13 04:00] VITALS: BP 111/82
[2019-03-13 04:30] LABS: ANION GAP 8 mmol/L (7-16); BUN 19 mg/dL (7-18); CALCIUM 9.4 mg/dL (8.5-10.1); CHLORIDE 103 mmol/L (98-107); CO2 27 mmol/L (21-32); CREATININE 1.7 mg/dL (0.7-1.3); GLUCOSE 81 mg/dL (74-106); POTASSIUM 4.1 mmol/L (3.5-5.1); SODIUM 138 mmol/L (136-145); TROPONIN-I <0.06 ng/mL (<0.06)
--- NOTE | 2019-03-13 05:40 | NUR ---
Patient arrived to the floor at 2315. Patient placed on fall precautions d/t low heart rate. Patient verbalized understanding. Patient is AAOx4 and on room air. Patient c/o right hip pain 8/10 that subsides with repositioning. No other concerns or complaints received. Patient remains bradycardic throughout this shift and asymptomatic.
[2019-03-13 08:15] VITALS: BP 111/84
--- NOTE | 2019-03-13 08:36 | EKG ---
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 : 1955 Requested By: Travis Barlow Order Number: [id number] MD: Juvencio Arenas Measurements Intervals [place] Rate: 35 P: 0 CT: 320 QRS: -57 QRSD: 121 T: 236 QT: 609 QTc: 465 Interpretive Statements Atrial fibrillation with a slow ventricular response Multiple premature complexes, vent & supraven Nonspecific IVCD with LAD T-wave abnormality, consider lateral ischemia Compared to ECG 10/21/2018 12:19:41 Heart rate has slowed Electronically Signed On 03-13-2019 8:36:08 LEAD 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
--- NOTE | 2019-03-13 09:12 | 2DMMODE ---
[facility] [email or web address] [address] 2 D/M-MODE ECHOCARDIOGRAM Name: NEW WATERMAN Room #: 208-P ADM IN M.R.#: [id number] Admission: 03/12/19 Attend Phys: Noman Juárez Discharge: Date of : 55 Report #: [id number] THIS REPORT FOR: //name// APPROVED REPORT Study performed: 03/13/2019 08:18:24 EXAM: Comprehensive 2D, Doppler, and color-flow Echocardiogram Patient Location: Echo lab Room #: 208 Status: routine BSA: 2.10 HR: 39 bpm BP: 111/82 mmHg Rhythm: Bradycardia Indications Bradycardia CAD Cardiomyopathy 2D Dimensions RVDd: 41.09 mm IVSd: 11.48 (7-11mm) LVOT Diam: 23.22 (18-24mm) LVDd: 50.58 mm PWd: 10.15 (7-11mm) Ascending Ao: 35.97 (22-36mm) LVDs: 37.91 (25-40mm) Aortic Root: 31.75 mm IVC: 14.00 mm Volumes Left Atrial Volume (Systole) Single Plane 4CH: 95.63 mL Single Plane 2CH: 92.55 mL LA ESV Index: 49.00 mL/m2 Aortic Valve AoV Peak Luke.: 1.36 m/s AO Peak Gr.: 7.43 mmHg LVOT Max P.21 mmHg LVOT Max V: 1.03 m/s WAYNE Vmax: 3.19 cm2 Mitral Valve E/A Ratio: 4.8 MV Decel. Time: 182.76 ms MV E Max Luke.: 1.00 m/s [facility] [address] [place] [address] 2 D/M-MODE ECHOCARDIOGRAM Name: NEW WATERMAN Room #: [address] [place] [address] IN [facility]#: [id number] Admission: 03/12/19 Attend Phys: Noman Juárez Discharge: Date of : 55 Report #: [id number] A Luke.: 0.21 m/s MV PHT: 53.00 ms IVRT: 161.48 ms Pulmonary Valve PV Peak Luke.: 0.99 m/s PV Peak Gr.: 3.89 mmHg Tricuspid Valve TR Peak Luke.: 2.43 m/s TR Peak Gr.: 23.70 mmHg PA Pressure: 29.00 mmHg Left Ventricle The left ventricle is normal size. There is normal left ventricular wall thickness. Left ventricular systolic function is at the lower limits of normal. LVEF is 50%. Hypokinesis of base of inferior wall This study is not technically sufficient to allow evaluation of the LV diastolic function. Right Ventricle The right ventricle is normal size. The right ventricular systolic function is normal. Atria Left atrium is dilated. Right atrium is dilated. Aortic Valve The aortic valve is sclerotic. Trace to mild aortic regurgitation. There is no aortic valvular stenosis. Mitral Valve The mitral valve is normal in structure. Mild mitral regurgitation. No evidence of mitral valve stenosis. Tricuspid Valve The tricuspid valve is normal in structure. There is mild tricuspid regurgitation. Estimated PAP 30 mmHg. There is no pulmonary hypertension. Pulmonic Valve The pulmonary valve is normal in structure. Trace to mild pulmonic regurgitation. Great Vessels The aortic root is normal in size. IVC is normal in size and collapses >50% with inspiration. [facility] [place] [address] 2 D/M-MODE ECHOCARDIOGRAM Name: NEW WATERMAN Room #: 208-P ADM IN M.R.#: [id number] Admission: 03/12/19 Attend Phys: Noman Juárez Discharge: Date of : 55 Report #: [id number] Pericardium There is no pericardial effusion. <Conclusion> Left ventricular systolic function is at the lower limits of normal. LVEF is 50%. Hypokinesis of base of inferior wall Both atria are dilated. The aortic valve is sclerotic. Trace to mild aortic regurgitation, no stenosis. The mitral valve is normal in structure. Mild mitral regurgitation. There is mild tricuspid regurgitation. Estimated pulmonary artery pressure of 30 mmHg. There is no pericardial effusion. <ELECTRONICALLY SIGNED> By: Juvencio Arenas MD, [facility] 03/13/19910 0 0 Juvencio Arenas MD, [facility] /INF
[2019-03-13 11:01] LABS: APTT 31.5 Seconds (24.5-32.8); INR 1.1; PROTIME 11.4 Seconds (9.3-11.4)
[2019-03-13 11:35] VITALS: BP 127/69
--- NOTE | 2019-03-13 14:46 | NUR ---
Case opened to follow for dc planning. Pt known to cm from admission last summer. He now lives indep in his own apt and no longer lives with ex girlfriend Kiara. They are still friends and she is supportive. His brothers and dtr are supportive as well. His nephew is planning on staying with him for a few days at ar. He is a&0ox4 and drive himself to the ER from his pcp office. He reports no hh recently and that he is only using a cane. He denies any dc planning needs at this time. PT eval pending in the am. He is on bedrest this afternoon s/p pacemaker placement. Will follow along for possible hh referral at ar.
[2019-03-13 15:55] VITALS: BP 154/98
--- NOTE | 2019-03-13 17:10 | EKG ---
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 ANTONIO : 1955 Requested By: Stacie Torres Order Number: [id number] MD: Juvencio Arenas Measurements Intervals [place] Rate: 34 P: [place]: QRS: -44 QRSD: 124 T: 244 QT: 593 QTc: 446 Interpretive Statements Atrial fibrillation with a slow ventricular response Nonspecific IVCD with LAD Abnormal T, consider ischemia Compared to ECG 10/21/2018 12:19:41 No significant change was found Electronically Signed On 03-13-2019 17:10:03 TYPEWRITER ALIGNER by Juvencio Arenas [email or web address] <ELECTRONICALLY SIGNED> By: Juvencio Arenas MD, [facility] 03/13/19 1710 2 2 Juvencio Arenas MD, [facility] /EPI
--- NOTE | 2019-03-13 19:23 | NUR ---
ASSUMED CARE 0700. ALERT X4, DENIES SOB, DENIES CHEST PAIN, UP WITH STAND BY ASSIST, FREQUENCY WITH URINATION, USES URINAL. NO BM NOTED TODAY. PACEMAKER PLACED BY DR CONROY TODAY. APACED IN THE 60'S, INCISSION SITE INTACT. FOLLOWING POST PROCERURE PROTOCOL OF INPLANTABLE DEVICE. HOB 45DEGREES, IMMOBALIZER IN PLACE. EDUCATED ON BED REST TODAY. DIET ADVANCED TO HEART HEALTHY. FALL PRECAUTIONS IN PLACE. LIKELY DC TOMORROW. REPORTED OFF TO NIGHT NURSE.
[2019-03-13 20:05] VITALS: BP 117/75
--- NOTE | 2019-03-14 00:20 | NUR ---
ASSESSMENTS CHARTED, MEDS GIVEN CHARTED. PATIENT IS ALERT AND ORIENTED, C/O PAIN AT INCISION SITE. INCISION SITE HAS SMALL AMOUNT DRAINAGE. OPEN TO AIR, SURGICAL GLUE ON INCISION. A-PACED ON TELEMETRY. ON BEDREST DURING SHIFT. LEFT ARM IMMOBILIZER IN PLACE. HEAD ELEVATED. PLAN OF CARE IS TO HAVE CHEST XRAY IN AM, INTERREGATION OF PACEMAKER THEN DISCHARGE HOME IF ALL IS WELL.
[2019-03-14 00:48] VITALS: BP 129/87
[2019-03-14 04:45] VITALS: BP 120/75
[2019-03-14 08:43] VITALS: BP 130/81
[2019-03-14] MEDS ORDERED: ELIQUIS5 MG PO (11:46)
[2019-03-14] MEDS ORDERED: COREG6.25 MG PO (11:46)
[2019-03-14 12:45] VITALS: BP 130/81
--- NOTE | 2019-03-14 14:58 | NUR ---
ASSUMED CARE 0700, ORRIENTED X4, VS STABLE, DENIES CHEST PAIN, DENIES SOB, VOICE THAT HE FEELS STRONGER, IMMOBALIZER REMOVED BY DR CONROY WITH POST PACEMAKER INSTRUCTION REVIEWED INCLUDING WEARING IMMOBALIZER WHEN SLEEPINF DUE TO SLEEPING ON SIDE OF PACEMAKER. APACED ON TELE IN THE 60"S. UP WITH ASSISTX1 WITH [employer] THAT HE USES AT HOME. INSTRUCTED ON SITE CARE. LIFTING LIMITS AND TO FOLLOW UP WITH CARDIOLOGY, [facility], AND PCP PER [place] PAPER WORK. IV AND TELE REMOVED. NEW SCRIPT EDUCATION PROVIDED AND REVIEWED. DC HOME WITH SELF CARE.
== END 2019-03-14 15:13 | disposition home or self-care (01) | DRG 243 ==
LOC: ER 15:46 → 2N 18:05 → EROBS 18:05 → 2N 23:06
PROVIDERS: Emergency Medicine; Internal Medicine Cardiovascular Disease; ADMIT Hospitalist
PROC: 02HK3JZ Insertion of Pacemaker Lead into Right Ventricle, Percutaneous Approach (ICD-10-PCS; principal; 2019-03-13)
PROC: 0JH606Z Insertion of Pacemaker, Dual Chamber into Chest Subcutaneous Tissue and Fascia, Open Approach (ICD-10-PCS; principal; 2019-03-13)
PROC: B517YZZ Fluoroscopy of Left Subclavian Vein using Other Contrast (ICD-10-PCS; principal; 2019-03-13)
PROC: B516YZZ Fluoroscopy of Right Subclavian Vein using Other Contrast (ICD-10-PCS; principal; 2019-03-13)
PROC: 02H63JZ Insertion of Pacemaker Lead into Right Atrium, Percutaneous Approach (ICD-10-PCS; principal; 2019-03-13)
DX: I45.5 Other specified heart block (principal); N17.9 Acute kidney failure, unspecified; I50.30 Unspecified diastolic (congestive) heart failure; R00.1 Bradycardia, unspecified; E87.5 Hyperkalemia; I48.91 Unspecified atrial fibrillation; I25.5 Ischemic cardiomyopathy; G47.33 Obstructive sleep apnea (adult) (pediatric); E78.5 Hyperlipidemia, unspecified; I25.10 Atherosclerotic heart disease of native coronary artery without angina pectoris; I12.9 Hypertensive chronic kidney disease with stage 1 through stage 4 chronic kidney disease, or unspecified chronic kidney disease; N18.2 Chronic kidney disease, stage 2 (mild); Z95.5 Presence of coronary angioplasty implant and graft; Z80.0 Family history of malignant neoplasm of digestive organs; Z90.49 Acquired absence of other specified parts of digestive tract; Z79.82 Long term (current) use of aspirin; Z79.899 Other long term (current) drug therapy; Z87.891 Personal history of nicotine dependence; Z79.01 Long term (current) use of anticoagulants; I25.2 Old myocardial infarction
CPT/HCPCS: 10081; 62110; 62900

== ENCOUNTER 2019-04-03 12:53 | Emergency (ER) | payer OTHER ==
[~2019-04-03] VITALS: Ht 172.7 cm; Wt 95.3 kg
[~2019-04-03 12:53] MED LIST changes: +COREG6.25 MG PO
[2019-04-03 15:23] VITALS: BP 124/74
[2019-04-03] MEDS ORDERED: FLEXERIL PO (16:22)
[2019-04-03] MEDS ORDERED: NORCO 5-325 TA1 EAC1 PO (16:22)
== END 2019-04-03 16:30 | disposition home or self-care (01) ==
LOC: ER 12:53
DX: M25.551 Pain in right hip (principal); I10 Essential (primary) hypertension; Z95.0 Presence of cardiac pacemaker; Z87.891 Personal history of nicotine dependence; W19.XXXA Unspecified fall, initial encounter; Y93.89 Activity, other specified; Y92.89 Other specified places as the place of occurrence of the external cause; Y99.8 Other external cause status

== ENCOUNTER → 2019-04-23 | Outpatient (CLI) | payer OTHER ==
[~2019-04-23] MED LIST changes: +NORCO 5-325 TA1 EAC1 PO
== END ==
LOC: SJCVC 14:14
DX: I11.0 Hypertensive heart disease with heart failure (principal); R94.31 Abnormal electrocardiogram [ECG] [EKG]; I50.22 Chronic systolic (congestive) heart failure; I48.0 Paroxysmal atrial fibrillation; E78.00 Pure hypercholesterolemia, unspecified; I25.10 Atherosclerotic heart disease of native coronary artery without angina pectoris; I48.19 Other persistent atrial fibrillation; I71.4 Abdominal aortic aneurysm, without rupture; G47.33 Obstructive sleep apnea (adult) (pediatric); Z79.899 Other long term (current) drug therapy; Z95.0 Presence of cardiac pacemaker; Z87.891 Personal history of nicotine dependence

== ENCOUNTER → 2019-06-18 | Outpatient (CLI) | payer OTHER | LOC: SJCVC 15:55 | DX: R94.31 Abnormal electrocardiogram [ECG] [EKG] (principal); I45.4 Nonspecific intraventricular block; I42.8 Other cardiomyopathies; I49.5 Sick sinus syndrome; I48.0 Paroxysmal atrial fibrillation ==